=== PATIENT | male | born 1965 | race Caucasian/White ===

== ENCOUNTER → 2021-01-04 10:11 | Outpatient (CLI) | payer BC, SELFPAY ==
[2021-01-04] MEDS: COVID-19 VACC #1, MRNA(MOD) 100 MCG/0.5 ML VIAL IM (10:19)
== END ==
PROVIDERS: Visit Provider Internal Medicine
DX: Z23 Encounter for immunization (principal)
CPT/HCPCS: 0011A; 91301

== ENCOUNTER → 2021-02-08 09:50 | Outpatient (CLI) | payer BC, SELFPAY ==
[2021-02-08] MEDS: COVID-19 VACC #2, MRNA(MOD) 100 MCG/0.5 ML VIAL IM (09:56)
== END ==
PROVIDERS: Visit Provider Internal Medicine
DX: Z23 Encounter for immunization (principal)
CPT/HCPCS: 0012A; 91301